=== PATIENT | male | born 1950 | race African-American/Black ===

== ENCOUNTER 2017-10-07 13:45 | Emergency (ER) | payer MEDICARE, OTHER ==
[~2017-10-07] VITALS: Ht 182.9 cm; Wt 70.0 kg
[~2017-10-07 13:45] MED LIST: NOCURR
[2017-10-07] MEDS ORDERED: TAMS0.4C32 PO (14:13)
[2017-10-07] MEDS ORDERED: KETOROLAC TROMETHAMINE 30 MG/ML VIAL IM ONE (15:45)
[2017-10-07] MEDS ORDERED: CYCLOBENZAPRINE HCL 10 MG TABLET PO ONE (15:45)
[2017-10-07] MEDS ORDERED: HYDROCODONE/ACETAMINOPHEN 5-325 MG TABLET PO ONE (16:30)
[2017-10-07 17:26] VITALS: BP 121/88
== END 2017-10-07 17:58 | disposition home or self-care (01) ==
LOC: EMS 13:46
DX: M25.551 Pain in right hip (principal); M79.604 Pain in right leg
CPT/HCPCS: 73502; 73552; 96372; 99284; J1885